=== PATIENT | female | born 1955 | race Caucasian/White ===

== ENCOUNTER 2019-07-20 15:24 | Emergency (ER) | payer SELFPAY ==
[~2019-07-20] VITALS: Ht 170.2 cm; Wt 64.4 kg
[2019-07-20 15:40] VITALS: BP 172/91; Ht 170.2 cm; Wt 64.4 kg
== END 2019-07-20 18:30 | disposition home or self-care (01) ==
LOC: ED 15:24
DX: S52.502A Unspecified fracture of the lower end of left radius, initial encounter for closed fracture (principal); Z88.0 Allergy status to penicillin; Z88.5 Allergy status to narcotic agent; W11.XXXA Fall on and from ladder, initial encounter; Y93.89 Activity, other specified; Y92.89 Other specified places as the place of occurrence of the external cause; Y99.8 Other external cause status
CPT/HCPCS: J2001; Q0092